=== PATIENT | female | born 1980 | race American Indian/Alaskan Native ===

== ENCOUNTER 2020-01-24 00:55 | Emergency (ER) | payer SELFPAY ==
[2020-01-24] MEDS ORDERED: ACETAMINOPHEN 500 MG TAB PO ONE (01:18)
[2020-01-24] MEDS ORDERED: ASPIRIN 81 MG TAB CHEW PO ONE (01:18)
--- NOTE | 2020-01-24 01:18 | Emergency Department Report ---
ED Chest Pain HPI - General Chief Complaint: Chest Pain Stated Complaint: CP/REBEKAH PUI?: No Time Seen by Provider: 01/24/20 01:11 Source: patient, EMS Mode of arrival: Stretcher Limitations: No Limitations - History of Present Illness Initial Comments: This is a 39-year-old female with history of obesity who presents with sudden o nset of chest pressure shortness of breath. At 7 PM she ingested marijuana edible. She normally does not ingest edibles. 4 hours later she had the sudden onset of chest pressure. She feels as if someone or something is sitting on her chest pressure shortness of breath. She denies leg pain. She does not use oral contraceptives. She does not take any medication. She does not smoke cigarettes. Pain is moderately severe. She arrived via EMS. MD Complaint: chest pain -: Sudden, hour(s) (2) Onset: during rest Pain Location: substernal Pain Radiation: none Severity: moderate Severity scale (0 -10): 8 Quality: heaviness, dull Consistency: constant Improves With: nothing Context: other (New ingestion of marijuana edibles) - Related Data Allergies Allergy/AdvReac Type Severity Reaction Status Date / Time No Known Allergies Allergy Unverified 01/24/20 01:04 Heart Score - HEART Score History: Slightly suspicious EKG: Normal Age: < 45 Risk factors: No known risk factors Troponin: < normal limit HEART Score: 0 ED Review of Systems ROS: Stated complaint: CP/REBEKAH Other details as noted in HPI Comment: All other systems reviewed and negative Constitutional: denies: fever, malaise Respiratory: denies: cough, shortness of breath Cardiovascular: chest pain Gastrointestinal: denies: abdominal pain, nausea, vomiting ED Past Medical Hx - Past Medical History Previous Medical History?: No - Surgical History Past Surgical History?: No - Social History Smoking Status: Never Smoker Substance Use Type: Alcohol, Marijuana ED Physical Exam - General Limitations: No Limitations General appearance: alert, in no apparent distress, anxious, other (Appears fidgety) - Head Head exam: Present: atraumatic, normocephalic - Eye Eye exam: Present: normal appearance - ENT ENT exam: Present: mucous membranes moist - Neck Neck exam: Present: normal inspection, full ROM - Respiratory Respiratory exam: Present: normal lung sounds bilaterally. Absent: respiratory distress, wheezes, rales, rhonchi - Cardiovascular Cardiovascular Exam: Present: regular rate, normal rhythm, normal heart sounds. Absent: systolic murmur, diastolic murmur, rubs, gallop - GI/Abdominal GI/Abdominal exam: Present: soft, normal bowel sounds. Absent: distended, tenderness, guarding, rebound - Extremities Exam Extremities exam: Present: normal inspection - Neurological Exam Neurological exam: Present: alert, oriented X3 - Psychiatric Psychiatric exam: Present: normal affect, normal mood - Skin Skin exam: Present: warm, dry, intact, normal color. Absent: rash ED Course Vital Signs 01/24/20 01/24/20 01/24/20 01:03 01:04 01:08 Temperature 98.8 F Pulse Rate 98 H 114 H Respiratory 13 18 Rate Blood Pressure 131/67 [Left] O2 Sat by Pulse 97 100 Oximetry 01/24/20 01/24/20 01/24/20 01:15 01:31 01:45 Temperature Pulse Rate 99 H 98 H 97 H Respiratory 12 13 19 Rate Blood Pressure [Left] O2 Sat by Pulse 100 98 97 Oximetry 01/24/20 01/24/20 01/24/20 02:01 02:15 02:21 Temperature Pulse Rate 92 H 91 H Respiratory 22 27 H 18 Rate Blood Pressure [Left] O2 Sat by Pulse 99 96 100 Oximetry ED Medical Decision Making - Lab Data Result diagrams: 01/24/20 01:50 01/24/20 01:50 - EKG Data EKG shows normal: sinus rhythm, axis, intervals, QRS complexes Rate: normal - EKG Data Interpretation: normal EKG - Radiology Data Radiology results: report reviewed - Medical Decision Making Ms. De La Cruz presents with chest pain shortness of breath after ingestion of marijuana edible. Acute emergent causes of chest pain and shortness of breath have been ruled out including pulmonary embolism, aortic dissection, pneumothorax, ACS, arrhythmia, pneumonia. D-dimer negative. Troponin x2-. EKG and chest x-ray normal. CBC chemistry normal. I suspect marijuana overdose. She was given reassurance. Discharged home. Critical care attestation.: If time is entered above; I have spent that time in minutes in the direct care of this critically ill patient, excluding procedure time. ED Disposition Clinical Impression: Overdose of marijuana, Chest pain, Shortness of breath Disposition: TO HOME OR SELFCARE Is pt being admited?: No Does the pt Need Aspirin: No Condition: Stable Instructions: Chest Pain (ED) Referrals: CIERRA DIOR MD [Staff Physician] - 3-5 Days
[2020-01-24 02:01] LABS: Basophils # (Auto) 0.1 K/mm3 (0.0-0.1); Basophils % (Auto) 0.6 % (0.0-1.8); Eosinophils # (Auto) 0.1 K/mm3 (0.0-0.4); Eosinophils % (Auto) 0.8 % (0.0-4.3); Hematocrit 31.6 % (30.3-42.9); Hemoglobin 10.1 gm/dl (10.1-14.3); Lymphocytes # (Auto) 1.7 K/mm3 (1.2-5.4); Lymphocytes % (Auto) 20.6 % (13.4-35.0); Mean Corpuscular HGB Conc 32 % (30-34); Mean Corpuscular Volume 85 fl (79-97); Monocytes # (Auto) 0.5 K/mm3 (0.0-0.8); Platelet Count 268 K/mm3 (140-440); Red Blood Count 3.71 M/mm3 (3.65-5.03); Red Cell Distribution Width 15.6 % (13.2-15.2)
[2020-01-24 02:21] LABS: BUN/Creatinine Ratio 14; Blood Urea Nitrogen 11 mg/dL (7-17); Calcium 8.6 mg/dL (8.4-10.2); Hemolysis Index 3
[2020-01-24 04:43] VITALS: BP 132/65
== END 2020-01-24 04:41 | disposition home or self-care (01) ==
LOC: ED 00:55
DX: T40.7X1A Poisoning by cannabis (derivatives), accidental (unintentional), initial encounter (principal); Y92.89 Other specified places as the place of occurrence of the external cause
CPT/HCPCS: 36415; 71045; 80048; 84484; 85025; 85379; 93005